=== PATIENT | female | born 1975 | race Caucasian/White ===

== ENCOUNTER 2016-11-10 18:27 | Day surgery (SDC) | payer OTHER ==
[~2016-11-10] VITALS: Ht 160 cm; Wt 55.0 kg
[~2016-11-10 18:27] MED LIST: PRED20 PO; ZANT150T2 PO
[2016-11-10 18:29] VITALS: BP 122/84; PULSE 87; RESP 16; TEMP 98; O2SAT 98
[2016-11-10 19:06] VITALS: BP 113/82; PULSE 84; RESP 15; O2SAT 98
--- NOTE | 2016-11-10 19:08 | PD ---
HPI Chief Complaint: Foreign Body Time Seen by Provider: 18:52 Travel History International Travel<30 days: No Contact w/Intl Traveler<30days: No Traveled to known affect area: No History of Present Illness HPI The patient is a 41-year-old female who presents to the emergency department for possible food bolus impaction. The patient states she awakened at 2 AM to make an meal last night, ate, and then felt like there was a food bolus impaction in the inferior aspect of the neck. The patient has pain with swallowing has difficulty swallowing liquids. She is unable to tolerate any solid intake today. The patient does have a history of food bolus impaction in the past that had to be removed, failed glucagon therapy in the emergency department per her report. She denies having had any dilatation of her esophagus, but does note occasional choking when eating. The patient does have a history of hyperthyroidism. The patient's symptoms are moderate, exacerbated after eating at 2 AM, and there are no current alleviating factors. PFSH Past Medical History Arthritis: No Anxiety: Yes Depression: No Cancer: No Cardiovascular Problems: No Diabetes: No Diminished Hearing: No Endocrine: No Genitourinary: No Hepatitis: No Hiatal Hernia: No Immune Disorder: No Implanted Vascular Access Dvce: No Kidney Stones: Yes Musculoskeletal: No Neurologic: No Psychiatric: No Reproductive: No Respiratory: No Immunizations Current: Yes Thyroid Disease: No Tetanus Vaccination: < 5 Years Influenza Vaccination: No ?: Not LMP: 10/2016 : 10 Para: 8 Miscarriage: 2 : 0 Dilation and Curettage (D&C): Yes Tubal Ligation: Yes Past Surgical History Abdominal Surgery: Yes (CHOLECYSTECTOMY) AICD: No Cardiac Surgery: No Section: Yes Cholecystectomy: Yes Ear Surgery: No Endocrine Surgery: No Eye Surgery: No Genitourinary Surgery: No Gynecologic Surgery: Yes () Joint Replacement: No Neurologic Surgery: No Oral Surgery: No Pacemaker: No Thoracic Surgery: No Other Surgery: Yes Social History Alcohol Use: No Tobacco Use: Yes Substance Use: No Allergies-Medications (Allergen,Severity, Reaction): Coded Allergies: Tylenol #3 (Verified Allergy, Intermediate, itching, 11/10/16) Reported Meds & Prescriptions Reported Meds & Active Scripts Active No Active Prescriptions or Reported Medications Review of Systems Except as stated in HPI: all other systems reviewed are Neg General / Constitutional: No: Fever Cardiovascular: Positive: Chest Pain or Discomfort (chest pain in the upper aspect of the chest associated with swallowing) Gastrointestinal: Positive: Dysphagia, No: Nausea, Vomiting, Abdominal Pain Musculoskeletal: No: Weakness Neurologic: No: Dizziness Physical Exam Narrative GENERAL: Awake, alert, 41-year-old female who appears her stated age and is in no acute respiratory distress. SKIN: Warm and dry. HEAD: Atraumatic. Normocephalic. EYES: No injection or drainage. ENT: No nasal bleeding or discharge. Mucous membranes pink and moist. Increased saliva noted in the posterior oropharynx. Breath smells of tobacco. NECK: Trachea midline. No JVD. CARDIOVASCULAR: Regular rate and rhythm. No murmur appreciated. RESPIRATORY: No accessory muscle use. Clear to auscultation. Breath sounds equal bilaterally. GASTROINTESTINAL: Abdomen soft, non-tender, nondistended. No rebound tenderness. MUSCULOSKELETAL: No obvious deformities. No clubbing. No cyanosis. No edema. NEUROLOGICAL: Awake and alert. No obvious cranial nerve deficits. Motor grossly within normal limits. Normal speech. PSYCHIATRIC: Appropriate mood and affect; insight and judgment normal. Data Data Last Documented VS Vital Signs Date Time Temp Pulse Resp B/P Pulse Ox O2 Delivery O2 Flow Rate FiO2 11/10/16 19:06 84 15 11/10/16 19:06 113/82 98 11/10/16 18:29 98.0 Orders Complete Blood Count With Diff (11/10/16 19:04) Basic Metabolic Panel (Bmp) (11/10/16 19:04) Act Partial Throm Time (Ptt) (11/10/16 19:04) Prothrombin Time / Inr (Pt) (11/10/16 19:04) Electrocardiogram (11/10/16 ) Glucagon Inj (Glucagon Inj) (11/10/16 19:15) Sodium Chlor 0.9% 1000 Ml Inj (Ns 1000 M (11/10/16 19:15) Admit Order (Ed Use Only) (11/10/16 20:00) Labs Laboratory Tests Test 11/10/16 19:20 White Blood Count 13.1 TH/MM3 Red Blood Count 4.23 MIL/MM3 Hemoglobin 14.0 GM/DL Hematocrit 40.2 % Mean Corpuscular Volume 95.1 FL Mean Corpuscular Hemoglobin 33.0 PG Mean Corpuscular Hemoglobin 34.7 % Concent Red Cell Distribution Width 13.0 % Platelet Count 268 TH/MM3 Mean Platelet Volume 9.1 FL Neutrophils (%) (Auto) 71.5 % Lymphocytes (%) (Auto) 20.5 % Monocytes (%) (Auto) 4.7 % Eosinophils (%) (Auto) 2.7 % Basophils (%) (Auto) 0.6 % Neutrophils # (Auto) 9.4 TH/MM3 Lymphocytes # (Auto) 2.7 TH/MM3 Monocytes # (Auto) 0.6 TH/MM3 Eosinophils # (Auto) 0.4 TH/MM3 Basophils # (Auto) 0.1 TH/MM3 CBC Comment DIFF FINAL Differential Comment Prothrombin Time 10.7 SEC Prothromb Time International 1.0 RATIO Ratio Activated Partial 26.3 SEC Thromboplast Time Sodium Level 139 MEQ/L Potassium Level 3.6 MEQ/L Chloride Level 105 MEQ/L Carbon Dioxide Level 27.2 MEQ/L Anion Gap 7 MEQ/L Blood Urea Nitrogen 8 MG/DL Creatinine 0.60 MG/DL Estimat Glomerular Filtration 111 ML/MIN Rate Random Glucose 71 MG/DL Calcium Level 8.8 MG/DL [facility] Medical Decision Making Medical Screen Exam Complete: Yes Emergency Medical Condition: Yes Medical Record Reviewed: Yes Interpretation(s) EKG reveals normal sinus rhythm with a rate 81. No ischemic changes or ectopy noted. Laboratory Tests Test 11/10/16 19:20 White Blood Count 13.1 TH/MM3 Red Blood Count 4.23 MIL/MM3 Hemoglobin 14.0 GM/DL Hematocrit 40.2 % Mean Corpuscular Volume 95.1 FL Mean Corpuscular Hemoglobin 33.0 PG Mean Corpuscular Hemoglobin 34.7 % Concent Red Cell Distribution Width 13.0 % Platelet Count 268 TH/MM3 Mean Platelet Volume 9.1 FL Neutrophils (%) (Auto) 71.5 % Lymphocytes (%) (Auto) 20.5 % Monocytes (%) (Auto) 4.7 % Eosinophils (%) (Auto) 2.7 % Basophils (%) (Auto) 0.6 % Neutrophils # (Auto) 9.4 TH/MM3 Lymphocytes # (Auto) 2.7 TH/MM3 Monocytes # (Auto) 0.6 TH/MM3 Eosinophils # (Auto) 0.4 TH/MM3 Basophils # (Auto) 0.1 TH/MM3 CBC Comment DIFF FINAL Differential Comment Prothrombin Time 10.7 SEC Prothromb Time International 1.0 RATIO Ratio Activated Partial 26.3 SEC Thromboplast Time Sodium Level 139 MEQ/L Potassium Level 3.6 MEQ/L Chloride Level 105 MEQ/L Carbon Dioxide Level 27.2 MEQ/L Anion Gap 7 MEQ/L Blood Urea Nitrogen 8 MG/DL Creatinine 0.60 MG/DL Estimat Glomerular Filtration 111 ML/MIN Rate Random Glucose 71 MG/DL Calcium Level 8.8 MG/DL Differential Diagnosis Differential diagnoses includes globus sensation, esophageal food also impaction , esophageal stenosis, esophageal stricture, esophageal ring, esophageal motility disorder, aspiration. Narrative Course IV was established, labs were drawn and sent, and the patient was placed on cardiac telemetry monitoring and continuous pulse oximetry monitoring. EKG was ordered and interpreted. CBC, BMP, coags were sent to lab. The patient was administered glucagon 1 mg intravenously and 1 L of normal saline. The patient was then given an oral challenge. EKG was unremarkable, no evidence of STEMI. The patient was given a by mouth challenge, had to spit up some fluid, also stated she felt like she was "aspirated", and then stated she was having an anxiety attack. I had a discussion with the patient regarding globus versus food bolus impaction. The patient may have a partial food bolus impaction, therefore, discussed the patient with the on-call cattle sprayer, Dr. Novak who evaluated the patient in the emergency department at 7:52 PM. The patient will be taken to the GI lab for endoscopy to evaluate for globus versus esophageal food bolus impaction. Physician Communication Physician Communication I discussed the patient with the on-call cattle sprayer, Dr. Jacobson, at 7: 52 PM who evaluated the patient in the emergency department. Diagnosis Primary Impression: Esophageal obstruction due to food impaction Admitting Information Admitting Physician Requests: Observation Scripts No Active Prescriptions or Reported Meds Condition: Stable Mitchell Padron MD Nov 10, 2016 19:08
[2016-11-10] MEDS ORDERED: SODIUM CHLOR 0.9% 1000 ML INJ 1,000 ML IV ONE (19:15)
[2016-11-10] MEDS ORDERED: GLUCAGON 1 MG/ML VIAL IV PUSH ONE (19:15)
[2016-11-10 19:42] LABS: AUTOMATED NEUTROPHIL # 9.4 TH/MM3 (1.8-7.7); BASOPHIL # 0.1 TH/MM3 (0-0.2); BASOPHIL % 0.6 % (0.0-2.0); EOSINOPHIL # 0.4 TH/MM3 (0-0.4); EOSINOPHIL % 2.7 % (0.0-4.0); HEMATOCRIT 40.2 % (35.0-46.0); HEMO FLAGS DIFF FINAL; LYMPH % 20.5 % (9.0-44.0); LYMPHOCYTE # 2.7 TH/MM3 (1.0-4.8); MEAN CELL VOLUME 95.1 FL (80.0-100.0); MEAN CORPUSCULAR HGB CONC 34.7 % (32.0-36.0); MONO % 4.7 % (0.0-8.0); NEUT % 71.5 % (16.0-70.0); PLATELET COUNT 268 TH/MM3 (150-450); RED BLOOD COUNT 4.23 MIL/MM3 (4.00-5.30); WHITE BLOOD COUNT 13.1 TH/MM3 (4.0-11.0)
[2016-11-10 19:52] LABS: APTT (PATIENT) 26.3 SEC (24.3-30.1); PROTHROMBIN TIME - PATIENT 10.7 SEC (9.8-11.6)
[2016-11-10 19:57] LABS: BICARBONATE 27.2 MEQ/L (21.0-32.0); POTASSIUM 3.6 MEQ/L (3.5-5.1)
[2016-11-10 21:50] VITALS: TEMP 98.1
[2016-11-10 22:10] VITALS: BP 112/84; PULSE 84; RESP 18; O2SAT 99
[2016-11-10] MEDS ORDERED: DO NOT ADM ANY ANTICOAGULANT DRUGS XX PRN (22:15)
[2016-11-10] MEDS ORDERED: PROPOFOL 200 MG/20 ML AMP IV ONE (22:23)
--- NOTE | 2016-11-10 22:30 | MB ---
cc: KALI DEVLIN DATE OF CONSULTATION 11/10/16 DATE OF 1975 REASON FOR REFERRAL Dysphagia. HISTORY OF PRESENT ILLNESS Thank you for the consultation. A 41-year-old female who feels that there is a food bolus impaction since 2:00 a.m. this morning. The patient feels that it is pressuring her throat. She has some difficulty drinking and spitting up when she tried to drink water. The patient was in the ER and very anxious. She was given glucagon without any relief. Apparently, she had similar episode two years ago where she had food bolus impaction with meat and it was removed. PAST MEDICAL HISTORY 1. Anxiety 2. Kidney stone 3. section 4. Cholecystectomy, ALLERGIES Tylenol III SOCIAL HISTORY Negative for alcohol or drugs. Positive for tobacco. REVIEW OF SYSTEMS All 12-point negative except HPI. FAMILY HISTORY Noncontributory. PHYSICAL EXAMINATION GENERAL: Alert, oriented, anxious in no acute distress. VITAL SIGNS: Stable. HEENT: Pupils round, reactive to light. NECK: Supple. CHEST: Clear. CARDIAC: Regular rate and rhythm. ABDOMEN: Soft, nondistended. Positive bowel sounds. EXTREMITIES: No edema, clubbing or cyanosis. NEUROLOGIC: Neurologically intact. PSYCHIATRIC: Psychologically appropriate with significant anxiety. LABORATORY DATA Normal hemoglobin 14.0, white count 13.1, platelet 268. Chemistry normal. ASSESSMENT/PLAN A 41-year-old lady with possible foreign body with dysphagia. The patient will need upper endoscopy with possible foreign body removal on an urgent basis. We will do it tonight. I discussed with the patient the procedure and complication. She agreed to have it done. This will be done today. MD CRISTIAN Reyes/ /9:32 PM /10:09 PM
--- NOTE | 2016-11-10 23:06 | MR ---
cc: KALI DEVLIN M.D. DATE: 11/10/16 1975 PROCEDURE Upper gastrointestinal endoscopy with foreign-body removal, dilation of esophageal stricture and biopsy of the esophagus. INDICATION A 41-year-old lady who has dysphagia, foreign body entrapment. PROCEDURE After informing the patient about procedure and complication, consent was signed. The patient was intubated to protect her airway by anesthesia. After sedation, the scope was placed in the mouth. There was foreign body in the proximal esophagus, pushed into the stomach. The scope was advanced to the duodenum then the scope drawn back with the stomach with retroflexion, then the scope drawn back to the proximal esophagus. Biopsy was done from what it looked like possible Ghazal esophagitis. After that, the guidewire was passed through the scope and dilator size 18 mm was passed without immediate complication. FINDINGS 1. Foreign body removed as above. 2. Possible Ghazal esophagitis biopsy 3. Dilation of esophageal stricture. 4. Normal otherwise. RECOMMENDATIONS 1. No NSAIDs. 2. Chew food well. 3. Follow-up biopsy. If it is positive for Ghazal, the patient will need treatment. The patient needs to be on soft diet. MD CRISTIAN Reyes/ /9:43 PM /10:58 PM
--- NOTE | 2016-11-11 17:28 | EKG ---
Date Performed: 11/10/2016 Time Performed: 19:24:51 PTAGE: 41 years EKG: Sinus rhythm NORMAL ECG PREVIOUS TRACING : 11/13/2015 19.58 Since previous tracing, no significant change noted DOCTOR: Sonia Olivarez Interpretating Date/Time 11/11/2016 17:22:56
== END 2016-11-10 22:20 | disposition home or self-care (01) ==
LOC: NEPC 18:27 → HSDC 20:18
PROVIDERS: ATTEND Hospitalist
DX: K22.2 Esophageal obstruction (principal); R13.10 Dysphagia, unspecified; T18.128A Food in esophagus causing other injury, initial encounter; K20.9 Esophagitis, unspecified; E05.90 Thyrotoxicosis, unspecified without thyrotoxic crisis or storm; Z87.442 Personal history of urinary calculi
CPT/HCPCS: 00740; 43239; 43247; 43248; 80048; 85025; 85610; 85730; 88305; 88312; 93005; 96374; 99284; C1769; J1610; J3010; J7030

== ENCOUNTER 2016-11-15 12:04 | Emergency (ER) | payer OTHER ==
[~2016-11-15] VITALS: Ht 160 cm; Wt 55.0 kg
[2016-11-15 12:06] VITALS: BP 133/88; PULSE 88; RESP 16; TEMP 98.2; O2SAT 98
[2016-11-15] MEDS ORDERED: ONDANSETRON ODT 4 MG TAB PO ONE (12:45)
[2016-11-15] MEDS ORDERED: FLUCONAZOLE 200 MG TAB PO ONE (13:00)
[2016-11-15] MEDS ORDERED: FLUC10SU PO (13:01)
--- NOTE | 2016-11-15 13:01 | PD ---
HPI Chief Complaint: GI Complaint Time Seen by Provider: 12:17 Travel History International Travel<30 days: No Contact w/Intl Traveler<30days: No Traveled to known affect area: No History of Present Illness HPI 41-year-old female came to the emergency room with history of nausea, dysphagia and some chest pain for past 2-3 days. Patient says that about 2-3 days ago she was in the emergency room for a food bolus impaction in her esophagus. She was taken to the GI suite and with endoscopy had the food particle taken out. There was a biopsy sent of her esophagus and she was supposed to follow up with the GI specialist in a week. However she started getting these other symptoms and that's why she is here to be checked out. She seems anxious and uncomfortable. Vital signs were completely stable. She points to her mid sternal and right parasternal area pain. Patient says that this is the second time in past one year she has had food impaction in her throat. She does have a primary care physician who has told her that her thyroid has been "acting out ". [facility] Past Medical History Narrative Medical List of her past medical, surgical, social and family history has been reviewed from the nursing note. Arthritis: No Anxiety: Yes Depression: No Cancer: No Cardiovascular Problems: No Diabetes: No Diminished Hearing: No Endocrine: No Genitourinary: No Hepatitis: No Hiatal Hernia: No Immune Disorder: No Implanted Vascular Access Dvce: No Kidney Stones: Yes Musculoskeletal: No Neurologic: No Psychiatric: No Reproductive: No Respiratory: No Immunizations Current: Yes Thyroid Disease: No ?: Not LMP: 10/2016 : 10 Para: 8 Miscarriage: 2 : 0 Dilation and Curettage (D&C): Yes Tubal Ligation: Yes Past Surgical History Abdominal Surgery: Yes (CHOLECYSTECTOMY) AICD: No Cardiac Surgery: No Section: Yes Cholecystectomy: Yes Ear Surgery: No Endocrine Surgery: No Eye Surgery: No Genitourinary Surgery: No Gynecologic Surgery: Yes () Joint Replacement: No Neurologic Surgery: No Oral Surgery: No Pacemaker: No Thoracic Surgery: No Other Surgery: Yes Social History Alcohol Use: No Tobacco Use: Yes Substance Use: No Allergies-Medications (Allergen,Severity, Reaction): Coded Allergies: Tylenol #3 (Verified Allergy, Intermediate, itching, 11/15/16) Comments List of her allergies reviewed from the nursing note. Reported Meds & Prescriptions Reported Meds & Active Scripts Active Omeprazole 40 Mg Cap 40 Mg PO DAILY Zofran Odt (Ondansetron Odt) 4 Mg Tab 4 Mg SL Q6HR PRN Fluconazole Liq (Fluconazole) 10 Mg/Ml Susp 100 Mg PO DAILY 10 Days Narrative Medication List of home medications reviewed from the nursing note. Review of Systems Except as stated in HPI: all other systems reviewed are Neg Physical Exam Narrative GENERAL: Awake, alert, anxious, mild distress SKIN: Warm and dry. HEAD: Atraumatic. Normocephalic. EYES: Pupils equal and round. No scleral icterus. No injection or drainage. ENT: No nasal bleeding or discharge. Mucous membranes pink and moist. Oral thrush, bilateral tonsillar adenopathy NECK: Trachea midline. No JVD. CARDIOVASCULAR: Regular rate and rhythm. No murmur appreciated. RESPIRATORY: No accessory muscle use. Clear to auscultation. Breath sounds equal bilaterally. GASTROINTESTINAL: Abdomen soft, non-tender, nondistended. Hepatic and splenic margins not palpable. MUSCULOSKELETAL: No obvious deformities. No clubbing. No cyanosis. No edema. NEUROLOGICAL: Awake and alert. No obvious cranial nerve deficits. Motor grossly within normal limits. Normal speech. PSYCHIATRIC: Appropriate mood and affect; insight and judgment normal. Data Data Last Documented VS Orders Ondansetron Odt (Zofran Odt) (11/15/16 12:45) Fluconazole (Diflucan) (11/15/16 13:00) [facility] Medical Decision Making Medical Screen Exam Complete: Yes Emergency Medical Condition: Yes Medical Record Reviewed: Yes Differential Diagnosis Strep throat, Ghazal esophagitis, oral thrush, anxiety Narrative Course 1 PM I looked at the patient's upper endoscopy report that was done by Dr. Marquez. His report said that he was suspicious for Ghazal esophagitis and had sent of biopsy for pathology. If it was positive for Ghazal she would require treatment. Patient was supposed to follow up with him in one week. The pathology report did show lot of fungal elements which looks like yeast. Given her findings of oral/and endoscopy finding I went ahead and started her on fluconazole 200 mg. I discussed the case with Dr. Marquez and he agreed with the treatment. He said he would be happy to follow up with her in his office next week. However from his standpoint he did not need anything else to be done. I have asked the patient to follow up with her primary care and have a workup done for immunosuppressive disorders including HIV. She had her last HIV screening done in [facility] in 2012. She admitted that she did not have any further HIV test done since then. She does seem pretty anxious with that being a possibility. I've tried to reassure her and asked her to follow up with her primary care. I have answered all her questions to the best of my ability. She will be discharged home. Procedures EKG Prior to Arrival: No Physician Communication Physician Communication Dr. Marquez Diagnosis Primary Impression: Ghazal esophagitis Additional Impressions: Oral thrush Dysphagia Qualified Code: R13.14 - Esophageal dysphagia tonsillar adenopathy Acute gastritis Qualified Code: K29.00 - Other acute gastritis without hemorrhage Referrals: Shelbi Jacobson MD 3 days Additional Instructions: Please follow-up with your primary care and needs to work you up for immunosuppressive disorders. Take the medication as per the prescription direction. Return to the ER if the condition worsens or any other new concerns. Please follow-up with the GI specialist as per the appointment. Med/Other Pt SpecificInfo: Prescription(s) given Scripts Omeprazole 40 Mg Cap40 Mg PO DAILY #30 CAP Ref 0 Prov:Cinthia Danielle MD 11/15/16 Ondansetron Odt (Zofran Odt)4 Mg Tab4 Mg SL Q6HR PRN (Nausea/Vomiting) #30 TAB Ref 0 Prov:Cinthia Danielle MD 11/15/16 Fluconazole Liq 10 Mg/Ml [id number] Mg PO DAILY 10 Days Ref 0 Prov:Cinthia Danielle MD 11/15/16 Disposition: 01 DISCHARGE HOME Condition: Stable Cinthia Danielle MD Nov 15, 2016 13:01 Condition: Stable Cinthia Danielle MD Nov 15, 2016 13:01
[2016-11-15] MEDS ORDERED: OMEP40CA2 PO (13:02)
[2016-11-15] MEDS ORDERED: ZOFR4TAB3 SL (13:02)
== END 2016-11-15 14:14 | disposition home or self-care (01) ==
LOC: NEPA 12:04
DX: B37.81 Candidal esophagitis (principal); B37.0 Candidal stomatitis; R13.14 Dysphagia, pharyngoesophageal phase; K29.00 Acute gastritis without bleeding; R11.0 Nausea; Z72.0 Tobacco use
CPT/HCPCS: 99283

== ENCOUNTER 2017-03-20 15:24 | Emergency (ER) | payer OTHER ==
[~2017-03-20] VITALS: Ht 160 cm; Wt 55.0 kg
[~2017-03-20 15:24] MED LIST changes: +FLUC10SU PO; +OMEP40CA2 PO; -PRED20 PO; -ZANT150T2 PO; +ZOFR4TAB3 SL
[2017-03-20 15:26] VITALS: BP 142/80; PULSE 102; RESP 20; TEMP 98.1; O2SAT 98
--- NOTE | 2017-03-20 15:51 | PD ---
HPI Chief Complaint: Pain: Acute or Chronic Time Seen by Provider: 15:43 Travel History International Travel<30 days: No Contact w/Intl Traveler<30days: No Traveled to known affect area: No History of Present Illness HPI This is a 41-year-old female who presents to the emergency department with abdominal discomfort in the center of her chest that started earlier today, wrapping around both sides into the back, severe, constant, not alleviated by laxatives associated with some nausea but no vomiting. She denies any fevers or chills and denies any diarrhea. She says this feels similar to when she's had kidney stones in the past. She is on Lortab for chronic back pain and she says she took it most recently last night and it didn't help. PFSH Past Medical History Arthritis: No Anxiety: Yes Depression: No Cancer: No Cardiovascular Problems: No Diabetes: No Diminished Hearing: No Endocrine: No Genitourinary: No Hepatitis: No Hiatal Hernia: No Immune Disorder: No Implanted Vascular Access Dvce: No Kidney Stones: Yes Musculoskeletal: No Neurologic: No Psychiatric: No Reproductive: No Respiratory: No Immunizations Current: Yes Thyroid Disease: No ?: Not : 10 Para: 8 Miscarriage: 2 : 0 Dilation and Curettage (D&C): Yes Tubal Ligation: Yes Past Surgical History Abdominal Surgery: Yes (CHOLECYSTECTOMY) AICD: No Cardiac Surgery: No Section: Yes Cholecystectomy: Yes Ear Surgery: No Endocrine Surgery: No Eye Surgery: No Genitourinary Surgery: No Gynecologic Surgery: Yes () Joint Replacement: No Neurologic Surgery: No Oral Surgery: No Pacemaker: No Thoracic Surgery: No Other Surgery: Yes Social History Alcohol Use: No Tobacco Use: Yes Substance Use: No Allergies-Medications (Allergen,Severity, Reaction): Coded Allergies: Tylenol #3 (Verified Allergy, Intermediate, itching, 03/20/17) Reported Meds & Prescriptions Reported Meds & Active Scripts Active Omeprazole 40 Mg Cap 40 Mg PO DAILY Zofran Odt (Ondansetron Odt) 4 Mg Tab 4 Mg SL Q6HR PRN Fluconazole Liq (Fluconazole) 10 Mg/Ml Susp 100 Mg PO DAILY 10 Days Review of Systems Except as stated in HPI: all other systems reviewed are Neg Physical Exam Narrative GENERAL: Rocking back and forth in bed, immediately asking for pain medicine SKIN: Focused skin assessment warm and dry. HEAD: Atraumatic. Normocephalic. EYES: Pupils equal and round. No injection or drainage. ENT: Moist mucous membranes NECK: Trachea midline. CARDIOVASCULAR: Regular rate and rhythm. No murmur appreciated. RESPIRATORY: Clear to auscultation. Breath sounds equal bilaterally. GASTROINTESTINAL: Abdomen soft, tender to palpation in the epigastrium with no rebound or guarding. MUSCULOSKELETAL: No obvious deformities. NEUROLOGICAL: Awake and alert. No obvious cranial nerve deficits. Moving all extremities. PSYCHIATRIC: Appropriate mood and affect; insight and judgment normal. Data Data Last Documented VS Vital Signs Date Time Temp Pulse Resp B/P Pulse Ox O2 Delivery O2 Flow Rate FiO2 03/20/17 15:26 98.1 102 20 142/80 98 Orders Complete Blood Count With Diff (03/20/17 15:33) Comprehensive Metabolic Panel (03/20/17 15:33) Urinalysis - C+S If Indicated (03/20/17 15:33) Lipase (03/20/17 15:33) Ct Abd/Pel W/O Iv Contrast (03/20/17 ) Chest, Single Ap (03/20/17 ) Sodium Chlor 0.9% 1000 Ml Inj (Ns 1000 M (03/20/17 16:00) Ketorolac Inj (Toradol Inj) (03/20/17 16:00) Labs Laboratory Tests Test 03/20/17 16:34 White Blood Count 9.2 TH/MM3 Red Blood Count 4.21 MIL/MM3 Hemoglobin 13.8 GM/DL Hematocrit 40.8 % Mean Corpuscular Volume 96.8 FL Mean Corpuscular Hemoglobin 32.8 PG Mean Corpuscular Hemoglobin 33.9 % Concent Red Cell Distribution Width 12.9 % Platelet Count 281 TH/MM3 Mean Platelet Volume 9.2 FL Neutrophils (%) (Auto) 65.0 % Lymphocytes (%) (Auto) 27.1 % Monocytes (%) (Auto) 3.5 % Eosinophils (%) (Auto) 3.3 % Basophils (%) (Auto) 1.1 % Neutrophils # (Auto) 6.0 TH/MM3 Lymphocytes # (Auto) 2.5 TH/MM3 Monocytes # (Auto) 0.3 TH/MM3 Eosinophils # (Auto) 0.3 TH/MM3 Basophils # (Auto) 0.1 TH/MM3 CBC Comment DIFF FINAL Differential Comment MDM Medical Decision Making Medical Screen Exam Complete: Yes Emergency Medical Condition: Yes Interpretation(s) Afebrile, tachycardic, mild hypertension No leukocytosis Last 24 hours Impressions Chest X-Ray 03/20/17 0000 Signed Impressions: Service Date/Time: Monday, March 20, 2017 15:46 - CONCLUSION: No acute disease. Jose C Patterson MD FACR Abdomen/Pelvis CT 03/20/17 0000 Signed Impressions: Service Date/Time: Monday, March 20, 2017 16:24 - CONCLUSION: 1. Two stable 2 mm calcified renal calculi in the superior left renal pole. A third 2 mm calcified calculus noted in September 2015 is not visualized in the current exam. 2. New punctate nonobstructing calyceal calculus in the superior right renal pole. 3. No evidence for obstructive uropathy. 4. Otherwise, no definitive findings to explain patient's abdominal pain. Erasmo Lucas MD Differential Diagnosis Nephrolithiasis, pyelonephritis, gastritis, peptic ulcer disease, gastroenteritis Narrative Course This is a 41-year-old female who presents to the emergency department with abdominal discomfort that started today. She says she has a history of kidney stones and this feels similar. Labs are obtained which were all reassuring. CT abdomen and pelvis demonstrates some renal calculi in the kidneys but nothing that would explain her pain with nothing in the ureter. Patient was given Toradol and IV fluids. I am a little bit concerned about drug seeking. The patient is consistently asking for IV pain medication and is rocking back and forth in bed. I can't identify a surgical or emergent etiology for her pain. I think she can be discharged and follow up with her primary care physician. Diagnosis Primary Impression: Abdominal pain Qualified Code: R10.13 - Epigastric pain Patient Instructions: General Instructions Additional Instructions: If you develop severe or worsening abdominal pain, fever>100.4, persistent vomiting or inability to eat or drink return to the emergency department immediately. Follow up with your primary care physician in 1-2 days for a check-up. Med/Other Pt SpecificInfo: Prescription(s) given Scripts Dicyclomine (Bentyl)10 Mg Cap10 Mg PO QID PRN (CRAMPS) #20 CAP Ref 0 Prov:Courtney Johnson MD 03/20/17 Disposition: 01 DISCHARGE HOME Condition: Stable Courtney Johnson MD Mar 20, 2017 15:51
[2017-03-20] MEDS ORDERED: KETOROLAC TROMETHAMINE 30 MG/ML (IVP) VIAL IV PUSH ONE (16:00)
[2017-03-20] MEDS ORDERED: SODIUM CHLOR 0.9% 1000 ML INJ 1,000 ML IV ONE (16:00)
--- NOTE | 2017-03-20 16:18 | RADRPT ---
EXAM DATE/TIME: 03/20/2017 15:46 [facility] COMPARISON: No previous studies available for comparison. INDICATIONS : Low chest pain MEDICAL HISTORY : None. SURGICAL HISTORY : Cholecystectomy. Tubal ligation. ENCOUNTER: Initial ACUITY: 1 day PAIN SCORE: 9/10 LOCATION: Bilateral chest FINDINGS: A single view of the chest demonstrates the lungs to be symmetrically aerated without evidence of mas s, infiltrate or effusion. The cardiomediastinal contours are unremarkable. Osseous structures are intact. CONCLUSION: No acute disease. Jose C Patterson MD FACR on March 20, 2017 at 16:15 Board Certified Radiologist. This report was verified electronically.
--- NOTE | 2017-03-20 16:52 | RADRPT ---
EXAM DATE/TIME: 03/20/2017 16:24 [facility] COMPARISON: CT ABDOMEN & PELVIS W/O CONTRAST, October 03, 2015, 12:50. INDICATIONS : Left side pain for 1 day. Rib pain. Positive history of renal stones. ORAL CONTRAST: No oral contrast ingested. RADIATION DOSE: 3.22 CTDIvol (mGy) MEDICAL HISTORY : Renal calculi. SURGICAL HISTORY : Cholecystectomy. section.Tubal ligation. ENCOUNTER: Initial ACUITY: 1 day PAIN SCALE: 10/10 LOCATION: Left flank TECHNIQUE: Volumetric scanning of the abdomen and pelvis was performed. Using automated exposure control and ad justment of the mA and/or kV according to patient size, radiation dose was kept as low as reasonably achievable to obtain optimal diagnostic quality images. DICOM format image data is available electro nically for review and comparison. FINDINGS: LOWER LUNGS: The visualized lower lungs are clear. LIVER: Homogeneous density without lesion. There is no dilation of the biliary tree. Gallbladder is surgica lly absent. SPLEEN: Redemonstration of a low density cystic lesion in the posterior spleen which is stable in size measur ing 2.2 cm. Spleen is otherwise unremarkable. PANCREAS: Within normal limits. KIDNEYS: Two stable small 2 mm calcified renal calculi in the superior left kidney. A third calculus noted in the mid left kidney is not definitively demonstrated on current exam. There is a punctate calyceal ca lcification in the superior pole of the right kidney. No hydronephrosis or hydroureter a calcified ur eteral calculi. ADRENAL GLANDS: Within normal limits. VASCULAR: There is no aortic aneurysm. BOWEL/MESENTERY: Appendix is not directly visualized. However, there is no significant pericecal inflammatory change. Bowel appear grossly unremarkable without evidence for obstruction.ABDOMINAL WALL: Within normal limits. RETROPERITONEUM: There is no lymphadenopathy. BLADDER: No wall thickening or mass. REPRODUCTIVE: Within normal limits. INGUINAL: There is no lymphadenopathy or hernia. MUSCULOSKELETAL: Within normal limits for patient age. CONCLUSION: 1. Two stable 2 mm calcified renal calculi in the superior left renal pole. A third 2 mm calcified ca lculus noted in September 2015 is not visualized in the current exam. 2. New punctate nonobstructing calyceal calculus in the superior right renal pole. 3. No evidence for obstructive uropathy. 4. Otherwise, no definitive findings to explain patient's abdominal pain. Erasmo Lucas MD on March 20, 2017 at 16:36 Board Certified Radiologist. This report was verified electronically.
[2017-03-20 16:59] LABS: BASOPHIL # 0.1 TH/MM3 (0-0.2); BASOPHIL % 1.1 % (0.0-2.0); EOSINOPHIL # 0.3 TH/MM3 (0-0.4); EOSINOPHIL % 3.3 % (0.0-4.0); HEMATOCRIT 40.8 % (35.0-46.0); HEMO FLAGS DIFF FINAL; LYMPH % 27.1 % (9.0-44.0); LYMPHOCYTE # 2.5 TH/MM3 (1.0-4.8); MEAN CELL VOLUME 96.8 FL (80.0-100.0); MEAN CORPUSCULAR HEMOGLOBIN 32.8 PG (27.0-34.0); MEAN CORPUSCULAR HGB CONC 33.9 % (32.0-36.0); MONO % 3.5 % (0.0-8.0); PLATELET COUNT 281 TH/MM3 (150-450); RED BLOOD COUNT 4.21 MIL/MM3 (4.00-5.30); RED CELL DISTRIBUTION WIDTH 12.9 % (11.6-17.2); WHITE BLOOD COUNT 9.2 TH/MM3 (4.0-11.0)
[2017-03-20 17:00] LABS: BLOOD, URINE TRACE (NEG); COMMENT (UR) CULT NOT INDICATED; CULTURE IF INDICATED CULT NOT INDICATED; GLUCOSE,URINE NEG (NEG); KETONE, URINE NEG (NEG); MUCUS URINE FEW /lpf (OCC); NITRITE,URINE NEG (NEG); SQUAMOUS EPITHELIAL CELL URINE 3 /hpf (0-5); URINE COLOR YELLOW (YELLW/STRAW)
[2017-03-20 17:10] LABS: ALT (GPT) 18 U/L (10-53); ANION GAP 6 MEQ/L (5-15); AST (GOT) 14 U/L (15-37); BICARBONATE 26.5 MEQ/L (21.0-32.0); BLOOD UREA NITROGEN 13 MG/DL (7-18); CHLORIDE 107 MEQ/L (98-107); GLOMERULAR FILTRATION RATE 93 ML/MIN (>89); POTASSIUM 4.1 MEQ/L (3.5-5.1); SODIUM (NA) 139 MEQ/L (136-145)
[2017-03-20] MEDS ORDERED: DICY10 PO (17:10)
[2017-03-20 17:12] LABS: ALKALINE PHOSPHATASE 87 U/L (45-117); TOTAL BILIRUBIN ADULT 0.5 MG/DL (0.2-1.0)
== END 2017-03-20 17:46 | disposition home or self-care (01) ==
LOC: NEPD 15:24
DX: R10.13 Epigastric pain (principal); R00.0 Tachycardia, unspecified
CPT/HCPCS: 71010; 74176; 80053; 81001; 83690; 85025; 96374; 99285; J1885; J7030

== ENCOUNTER 2017-06-15 16:24 | Emergency (ER) | payer OTHER ==
[~2017-06-15] VITALS: Ht 160 cm; Wt 57.0 kg
[~2017-06-15 16:24] MED LIST changes: +DICY10 PO
[2017-06-15] MEDS ORDERED: IOHEXOL 350 MG/ML 10 ML VIAL (for RAD DIAG) IVCONTRAST ONE (16:25)
[2017-06-15 16:29] VITALS: BP 114/78; PULSE 94; RESP 18; TEMP 98.8; O2SAT 100
[2017-06-15] MEDS ORDERED: CYCL1TAB29 PO (18:40)
[2017-06-15] MEDS ORDERED: GABA300C5 PO (18:40)
[2017-06-15] MEDS ORDERED: SODIUM CHLOR 0.9% 1000 ML INJ 1,000 ML IV SCH (18:43)
[2017-06-15] MEDS ORDERED: ONDANSETRON HCL 4 MG/2 ML VIAL IVP ONE (18:45)
[2017-06-15] MEDS ORDERED: MORPHINE SULFATE 4 MG/ML INJ IV PUSH ONE (18:45)
--- NOTE | 2017-06-15 19:13 | PD ---
HPI Chief Complaint: Abdominal Pain Time Seen by Provider: 18:39 Travel History International Travel<30 days: No Contact w/Intl Traveler<30days: No Traveled to known affect area: No History of Present Illness HPI 42-year-old female that presents to the ED for evaluation of right lower quadrant abdominal pain. Per patient she's had this since yesterday. Pain is sharp and 7 out of 10. Nausea and Vomiting. Diarrhea Noted. Per Patient She Also Has a Yeast Infection. She denies any other vaginal discharge. Per patient he feels similar to her previous yeast infections. No fevers chills or sweats. No recent surgeries. Per patient she had multiple C-sections. Per patient she had a C-sections and in 2014 she had tubal ligation. She had her gallbladder removed. No other medical issues. No urinary symptoms. Allergies to Tylenol 3. No blood with vomiting or with bowel movements or urine. PFSH Past Medical History Arthritis: No Anxiety: Yes Depression: No Cancer: No Cardiovascular Problems: No Diabetes: No Diminished Hearing: No Endocrine: No Genitourinary: No Hepatitis: No Hiatal Hernia: No Immune Disorder: No Implanted Vascular Access Dvce: No Kidney Stones: Yes Musculoskeletal: No Neurologic: No Psychiatric: No Reproductive: No Respiratory: No Immunizations Current: Yes Thyroid Disease: No ?: Unknown LMP: 05/25/17 : 10 Para: 8 Miscarriage: 2 : 0 Dilation and Curettage (D&C): Yes Tubal Ligation: Yes Past Surgical History Abdominal Surgery: Yes (CHOLECYSTECTOMY) AICD: No Cardiac Surgery: No Section: Yes Cholecystectomy: Yes Ear Surgery: No Endocrine Surgery: No Eye Surgery: No Genitourinary Surgery: No Gynecologic Surgery: Yes () Joint Replacement: No Pacemaker: No Thoracic Surgery: No Other Surgery: Yes Social History Alcohol Use: No Tobacco Use: Yes Substance Use: No Allergies-Medications (Allergen,Severity, Reaction): Coded Allergies: acetaminophen (Unverified Allergy, Intermediate, itching, 05/02/17) codeine (Unverified Allergy, Intermediate, itching, 05/02/17) Reported Meds & Prescriptions Reported Meds & Active Scripts Active Diflucan (Fluconazole) 150 Mg Tab 150 Mg PO ONCE Lortab (Hydrocodone-Acetaminophen) 5-325 Mg Tab 1 Tab PO Q6H PRN Zofran (Ondansetron HCl) 4 Mg Tab 4 Mg PO Q6HR PRN Flagyl (Metronidazole) 500 Mg Tab 500 Mg PO QID 10 Days Reported Flexeril (Cyclobenzaprine HCl) 10 Mg Tab 10 Mg PO TID Gabapentin 300 Mg Cap 300 Mg PO DAILY Review of Systems Except as stated in HPI: all other systems reviewed are Neg Physical Exam Narrative GENERAL: SKIN: Warm and dry. HEAD: Atraumatic. Normocephalic. EYES: Pupils equal and round. No scleral icterus. No injection or drainage. ENT: No nasal bleeding or discharge. Mucous membranes pink and moist. Tongue is midline. No uvula deviation. NECK: Trachea midline. No JVD. CARDIOVASCULAR: Regular rate and rhythm. No murmurs, S3, S4. RESPIRATORY: No accessory muscle use. Clear to auscultation. Breath sounds equal bilaterally. GASTROINTESTINAL: Abdomen soft, RLQ tenderness to palpation, nondistended. Hepatic and splenic margins not palpable. MUSCULOSKELETAL: Extremities without clubbing, cyanosis, or edema. No obvious deformities. Full range of motion of the upper and lower extremities bilaterally. 2+ pulses bilaterally. NEUROLOGICAL: Awake and alert. No obvious cranial nerve deficits. Motor grossly within normal limits. Five out of 5 muscle strength in the arms and legs. Normal speech. PSYCHIATRIC: Appropriate mood and affect; insight and judgment normal. Data Data Last Documented VS Vital Signs Date Time Temp Pulse Resp B/P (MAP) Pulse Ox O2 Delivery O2 Flow Rate FiO2 06/15/17 16:29 98.8 94 18 114/78 (90) 100 Room Air Orders Orders Complete Blood Count With Diff (06/15/17 18:43) Comprehensive Metabolic Panel (06/15/17 18:43) Lipase (06/15/17 18:43) Urinalysis - C+S If Indicated (06/15/17 18:43) Magnesium (Mg) (06/15/17 18:43) Iv Access Insert/Monitor (06/15/17 18:43) Ed Urine Pregnancytest Poc (06/15/17 18:43) Ct Abd/Pel W Iv Contrast(Rout) (06/15/17 ) Morphine Inj (Morphine Inj) (06/15/17 18:45) Ondansetron Inj (Zofran Inj) (06/15/17 18:45) Sodium Chlor 0.9% 1000 Ml Inj (Ns 1000 M (06/15/17 18:43) Iohexol 350 Inj (Omnipaque 350 Inj) (06/15/17 16:25) Labs Laboratory Tests Test 06/15/17 18:54 06/15/17 18:57 White Blood Count 8.4 TH/MM3 Red Blood Count 4.33 MIL/MM3 Hemoglobin 13.9 GM/DL Hematocrit 41.4 % Mean Corpuscular Volume 95.8 FL Mean Corpuscular Hemoglobin 32.1 PG Mean Corpuscular Hemoglobin Concent 33.5 % Red Cell Distribution Width 13.3 % Platelet Count 241 TH/MM3 Mean Platelet Volume 9.3 FL Neutrophils (%) (Auto) 74.2 % Lymphocytes (%) (Auto) 18.3 % Monocytes (%) (Auto) 4.6 % Eosinophils (%) (Auto) 2.2 % Basophils (%) (Auto) 0.7 % Neutrophils # (Auto) 6.2 TH/MM3 Lymphocytes # (Auto) 1.5 TH/MM3 Monocytes # (Auto) 0.4 TH/MM3 Eosinophils # (Auto) 0.2 TH/MM3 Basophils # (Auto) 0.1 TH/MM3 CBC Comment DIFF FINAL Differential Comment Blood Urea Nitrogen 8 MG/DL Creatinine 0.61 MG/DL Random Glucose 75 MG/DL Total Protein 7.9 GM/DL Albumin 4.1 GM/DL Calcium Level 8.9 MG/DL Magnesium Level 2.2 MG/DL Alkaline Phosphatase 79 U/L Aspartate Amino Transf (AST/SGOT) 19 U/L Alanine Aminotransferase (ALT/SGPT) 29 U/L Total Bilirubin 1.3 MG/DL Sodium Level 139 MEQ/L Potassium Level 3.9 MEQ/L Chloride Level 108 MEQ/L Carbon Dioxide Level 26.3 MEQ/L Anion Gap 5 MEQ/L Estimat Glomerular Filtration Rate 108 ML/MIN Lipase 105 U/L Urine Color YELLOW Urine Turbidity HAZY Urine pH 6.5 Urine Specific [place] 1.021 Urine Protein TRACE mg/dL Urine Glucose (UA) NEG mg/dL Urine Ketones TRACE mg/dL Urine Occult Blood NEG Urine Nitrite NEG Urine Bilirubin NEG Urine Urobilinogen 2.0 MG/DL Urine Leukocyte Esterase MOD Urine RBC 2 /hpf Urine WBC 4 /hpf Urine Squamous Epithelial Cells 6 /hpf Urine Mucus MANY /lpf Microscopic Urinalysis Comment CULT NOT INDICATED MDM Medical Decision Making Medical Screen Exam Complete: Yes Emergency Medical Condition: Yes Medical Record Reviewed: Yes Interpretation(s) CBC & BMP Diagram 06/15/17 18:54 Total Protein 7.9, Albumin 4.1, Calcium Level 8.9, Magnesium Level 2.2, Alkaline Phosphatase 79, Aspartate Amino Transf (AST/SGOT) 19, Alanine Aminotransferase (ALT/SGPT) 29, Total Bilirubin 1.3 H UA negative Last Impressions Abdomen/Pelvis CT 06/15/17 0000 Signed Impressions: Service Date/Time: May 20:16 - CONCLUSION: 1. Mild right-sided colitis possible in the proper clinical setting. No high-grade inflammatory changes are demonstrated. I don't clearly see the appendix. 2. Trace free fluid in the pelvic cul-de-sac. 3. Mild fatty infiltration of the liver. 4. Unchanged simple appearing cyst of the spleen. Gopi Yousif MD Differential Diagnosis UTI versus viral quadrant pain versus vaginitis versus acute on chronic pain versus gastritis versus gastroenteritis versus obstruction versus appendicitis Narrative Course 42-year-old female that presents to the ED for evaluation of right lower quadrant pain. Patient was properly examined and was found to have signs and symptoms of unclear etiology. Of concern for right lower quadrant pain possible appendicitis patient still has his appendix. Labs and imaging were ordered. Patient was given IV fluids and pain medication and antiemetics. Labs and imaging showed what appears to be acute diverticulitis. Otherwise unremarkable. No sign of appendicitis or any other disease. Patient was reassured. At this time patient will be treated for this with Flagyl to cover for bacterial infection, pain medication as well as Zofran. Patient was told that she was follow with PCP. She was given Diflucan at her request for possible yeast infection. See ED worsening symptoms. Given note for work. Diagnosis Primary Impression: Colitis Patient Instructions: General Instructions, Narcotic given in the ED Departure Forms: Tests/Procedures, Work Release Enter return to work date: Jun 18, 2017 Additional Instructions: Take medications as prescribed. Drink plenty of fluids. See ED worsening symptoms. Do not drink or drive with taking the pain medication. Med/Other Pt SpecificInfo: Prescription(s) given Scripts Fluconazole (Diflucan) 150 Mg Tab 150 MG PO ONCE for Infection, #1 TAB 1 Refill Prov: Hawa Simms MD 06/15/17 Hydrocodone-Acetaminophen (Lortab) 5-325 Mg Tab 1 TAB PO Q6H Y for PAIN, #10 TAB 0 Refills Prov: Hawa Simms MD 06/15/17 Ondansetron (Zofran) 4 Mg Tab 4 MG PO Q6HR Y for NAUSEA OR VOMITING, #15 TAB 0 Refills Prov: Hawa Simms MD 06/15/17 Metronidazole (Flagyl) 500 Mg Tab 500 MG PO QID for Infection for 10 Days, TAB 0 Refills Prov: Hawa Simms MD 06/15/17 Disposition: 01 DISCHARGE HOME Condition: Stable Aristides Bailey Jun 15, 2017 19:13
[2017-06-15 19:28] LABS: AUTOMATED NEUTROPHIL # 6.2 TH/MM3 (1.8-7.7); BASOPHIL # 0.1 TH/MM3 (0-0.2); BASOPHIL % 0.7 % (0.0-2.0); EOSINOPHIL # 0.2 TH/MM3 (0-0.4); EOSINOPHIL % 2.2 % (0.0-4.0); HEMATOCRIT 41.4 % (35.0-46.0); HEMO FLAGS DIFF FINAL; LYMPH % 18.3 % (9.0-44.0); LYMPHOCYTE # 1.5 TH/MM3 (1.0-4.8); MEAN CELL VOLUME 95.8 FL (80.0-100.0); MEAN CORPUSCULAR HEMOGLOBIN 32.1 PG (27.0-34.0); MEAN CORPUSCULAR HGB CONC 33.5 % (32.0-36.0); MONO % 4.6 % (0.0-8.0); NEUT % 74.2 % (16.0-70.0); PLATELET COUNT 241 TH/MM3 (150-450); RED BLOOD COUNT 4.33 MIL/MM3 (4.00-5.30); RED CELL DISTRIBUTION WIDTH 13.3 % (11.6-17.2); WHITE BLOOD COUNT 8.4 TH/MM3 (4.0-11.0)
[2017-06-15 19:28] LABS: BLOOD, URINE NEG (NEG); COMMENT (UR) CULT NOT INDICATED; CULTURE IF INDICATED CULT NOT INDICATED; GLUCOSE,URINE NEG (NEG); KETONE, URINE TRACE mg/dL (NEG); MUCUS URINE MANY /lpf (OCC); NITRITE,URINE NEG (NEG); PH, URINE 6.5 (5.0-8.5); SQUAMOUS EPITHELIAL CELL URINE 6 /hpf (0-5); URINE COLOR YELLOW (YELLW/STRAW)
[2017-06-15 19:46] LABS: ANION GAP 5 MEQ/L (5-15); AST (GOT) 19 U/L (15-37); BICARBONATE 26.3 MEQ/L (21.0-32.0); BLOOD UREA NITROGEN 8 MG/DL (7-18); CHLORIDE 108 MEQ/L (98-107); GLOMERULAR FILTRATION RATE 108 ML/MIN (>89); MAGNESIUM 2.2 MG/DL (1.5-2.5); POTASSIUM 3.9 MEQ/L (3.5-5.1); SODIUM (NA) 139 MEQ/L (136-145)
[2017-06-15 19:47] LABS: ALT (GPT) 29 U/L (10-53)
[2017-06-15 19:49] LABS: ALKALINE PHOSPHATASE 79 U/L (45-117); TOTAL BILIRUBIN ADULT 1.3 MG/DL (0.2-1.0)
--- NOTE | 2017-06-15 20:37 | RADRPT ---
EXAM DATE/TIME: 06/15/2017 20:16 [facility] COMPARISON: CT ABDOMEN & PELVIS W/O CONTRAST, March 20, 2017, 16:24. CT ABDOMEN & PELVIS W CONTRAST, April 29 015, 17:28. INDICATIONS : Right lower abdomen pain feeling nauseated. IV CONTRAST: 97 cc Omnipaque 350 (iohexol) IV ORAL CONTRAST: No oral contrast ingested. RADIATION DOSE: 4.97 CTDIvol (mGy) MEDICAL HISTORY : Renal calculi. SURGICAL HISTORY : Cholecystectomy. Tubal ligation. ENCOUNTER: Initial ACUITY: 1 day PAIN SCALE: 5/10 LOCATION: Right Abdomen TECHNIQUE: Volumetric scanning of the abdomen and pelvis was performed. Using automated exposure control and ad justment of the mA and/or kV according to patient size, radiation dose was kept as low as reasonably achievable to obtain optimal diagnostic quality images. DICOM format image data is available electro nically for review and comparison. FINDINGS: LOWER LUNGS: The visualized lower lungs are clear. LIVER: Liver is mild fatty infiltrated. Previous cholecystectomy. SPLEEN: Unchanged 23 mm simple appearing cyst PANCREAS: Within normal limits. KIDNEYS: Normal in size and shape. There is no mass, stone or hydronephrosis. ADRENAL GLANDS: Within normal limits. VASCULAR: There is no aortic aneurysm. BOWEL/MESENTERY: Mild wall thickening and mucosal enhancement seen of the cecum and ascending colon. I don't clearly s ee the appendix but no high-grade inflammatory changes are noted. There is small free fluid in the pe lvic cul-de-sac. ABDOMINAL WALL: Within normal limits. RETROPERITONEUM: There is no lymphadenopathy. BLADDER: No wall thickening or mass. REPRODUCTIVE: Within normal limits. INGUINAL: There is no lymphadenopathy or hernia. MUSCULOSKELETAL: Within normal limits for patient age. CONCLUSION: 1. Mild right-sided colitis possible in the proper clinical setting. No high-grade inflammatory negrete es are demonstrated. I don't clearly see the appendix. 2. Trace free fluid in the pelvic cul-de-sac. 3. Mild fatty infiltration of the liver. 4. Unchanged simple appearing cyst of the spleen. Gopi Yousif MD on June 15, 2017 at 20:30 Board Certified Radiologist. This report was verified electronically.
[2017-06-15] MEDS ORDERED: METR-1 PO (20:51)
[2017-06-15] MEDS ORDERED: ZOFR4TAB PO (20:51)
[2017-06-15] MEDS ORDERED: HYDR-3533 PO (20:51)
[2017-06-15] MEDS ORDERED: DIFL150T PO (20:51)
[2017-06-15 21:00] VITALS: BP 122/80; PULSE 88; RESP 19; O2SAT 100
[2017-06-15] MEDS ORDERED: FLUCONAZOLE 100 MG TAB PO ONE (21:15)
[2017-06-15] MEDS ORDERED: metroNIDAZOLE 500 MG TAB PO ONE (21:15)
== END 2017-06-15 21:32 | disposition home or self-care (01) ==
LOC: NEPC 16:24
DX: K52.9 Noninfective gastroenteritis and colitis, unspecified (principal); Z72.0 Tobacco use; Z79.899 Other long term (current) drug therapy; Z86.59 Personal history of other mental and behavioral disorders; Z87.442 Personal history of urinary calculi
CPT/HCPCS: 74177; 80053; 81001; 83690; 83735; 84703; 85025; 96374; 96375; 99285; J2270; J2405; J7030; Q9967

== ENCOUNTER 2017-07-30 14:12 | Emergency (ER) | payer OTHER ==
[~2017-07-30] VITALS: Ht 160 cm; Wt 50.0 kg
[~2017-07-30 14:12] MED LIST changes: +CYCL10TA PO; -DICY10 PO; +DIFL150T PO; -FLUC10SU PO; +GABA300C5 PO; +HYDR-3533 PO; +METR-1 PO; -OMEP40CA2 PO; +ZOFR4TAB PO; -ZOFR4TAB3 SL
[2017-07-30 14:17] VITALS: BP 122/76; PULSE 82; RESP 12; TEMP 97.9; O2SAT 99
[2017-07-30] MEDS ORDERED: HYDR-4107 PO (14:54)
[2017-07-30] MEDS ORDERED: SODIUM CHLOR 0.9% 1000 ML INJ 1,000 ML IV SCH (15:05)
[2017-07-30] MEDS ORDERED: ONDANSETRON HCL 4 MG/2 ML VIAL IVP ONE (15:15)
[2017-07-30] MEDS ORDERED: KETOROLAC TROMETHAMINE 30 MG/ML (IVP) VIAL IVP ONE (15:15)
[2017-07-30] MEDS ORDERED: SODIUM CHLORIDE 0.9% FLUSH 10 ML FLUSH IV FLUSH PRN (15:15)
--- NOTE | 2017-07-30 15:15 | PD ---
HPI Chief Complaint: GI Complaint Time Seen by Provider: 14:58 Travel History International Travel<30 days: No Contact w/Intl Traveler<30days: No Traveled to known affect area: No History of Present Illness HPI 42-year-old female presents to the emergency department reevaluation continued abdominal pain, nausea, diarrhea that has been ongoing since May when she was diagnosed with colitis. She states she was placed on antibiotics that she took. However, her symptoms are not resolved. She states she saw her family doctor who told her to take her antibiotics. However, she has not followed up with anybody since. She reports decreased appetite as well. No fevers or chills. She states the pain radiates up to her rib cage from her right lower abdomen. No exacerbating or alleviating factors. No other complaints at this time. Patient reports history tubal ligation, cholecystectomy, . She denies any urinary symptoms. No abnormal vaginal discharge or risk of STDs. PFSH Past Medical History Arthritis: No Anxiety: Yes Depression: No Cancer: No Cardiovascular Problems: No Diabetes: No Diminished Hearing: No Endocrine: No Genitourinary: No Hepatitis: No Hiatal Hernia: No Immune Disorder: No Implanted Vascular Access Dvce: No Kidney Stones: Yes Musculoskeletal: No Neurologic: No Psychiatric: No Reproductive: No Respiratory: No Immunizations Current: Yes Thyroid Disease: No Tetanus Vaccination: < 5 Years Influenza Vaccination: No ?: Not LMP: 07/21/2017 : 10 Para: 8 Miscarriage: 2 : 0 Dilation and Curettage (D&C): Yes Tubal Ligation: Yes Past Surgical History Abdominal Surgery: Yes AICD: No Cardiac Surgery: No Section: Yes Cholecystectomy: Yes Ear Surgery: No Endocrine Surgery: No Eye Surgery: No Genitourinary Surgery: No Gynecologic Surgery: Yes () Joint Replacement: No Pacemaker: No Thoracic Surgery: No Other Surgery: Yes (AND SURGERY BILAT ) Social History Alcohol Use: No Tobacco Use: Yes (1 ppd) Substance Use: No Allergies-Medications (Allergen,Severity, Reaction): Coded Allergies: acetaminophen (Unverified Allergy, Intermediate, itching, 07/30/17) codeine (Unverified Allergy, Intermediate, itching, 07/30/17) Reported Meds & Prescriptions Reported Meds & Active Scripts Active Ondansetron Odt 4 Mg Tab 4 Mg SL Q6HR PRN Macrobid (Nitrofurantoin Monohydrate Macrocrystals) 100 Mg Capsule 100 Mg PO BID 7 Days Reported Hydrocodone-Acetaminophen 5-300 Mg Tab 1 Tab PO Q6H PRN Flexeril (Cyclobenzaprine HCl) 10 Mg Tab 10 Mg PO TID Gabapentin 300 Mg Cap 300 Mg PO DAILY Review of Systems Except as stated in HPI: all other systems reviewed are Neg Physical Exam Narrative GENERAL: Well-nourished, well-developed female patient, ambulatory. Afebrile. SKIN: Focused skin assessment warm/dry. HEAD: Normocephalic. Atraumatic. EYES: No scleral icterus. No injection or drainage. NECK: Supple, trachea midline. No JVD or lymphadenopathy. CARDIOVASCULAR: Regular rate and rhythm without murmurs, gallops, or rubs. RESPIRATORY: Breath sounds equal bilaterally. No accessory muscle use. Lungs sounds are clear to auscultation. GASTROINTESTINAL: Abdomen soft . Patient has tenderness over right lower quadrant MUSCULOSKELETAL: No cyanosis, or edema. BACK: Nontender without obvious deformity. No CVA tenderness. Data Data Last Documented VS Vital Signs Date Time Temp Pulse Resp B/P (MAP) Pulse Ox O2 Delivery O2 Flow Rate FiO2 07/30/17 15:27 98 07/30/17 14:17 97.9 82 12 Orders Orders Complete Blood Count With Diff (07/30/17 15:05) Comprehensive Metabolic Panel (07/30/17 15:05) Lipase (07/30/17 15:05) Urinalysis - C+S If Indicated (07/30/17 15:05) Ct Abd/Pel W Iv Contrast(Rout) (07/30/17 15:05) Iv Access Insert/Monitor (07/30/17 15:05) Ecg Monitoring (07/30/17 15:05) Oximetry (07/30/17 15:05) Ondansetron Inj (Zofran Inj) (07/30/17 15:15) Sodium Chlor 0.9% 1000 Ml Inj (Ns 1000 M (07/30/17 15:05) Sodium Chloride 0.9% Flush (Ns Flush) (07/30/17 15:15) Ketorolac Inj (Toradol Inj) (07/30/17 15:15) Ed Urine Pregnancytest Poc (07/30/17 15:05) Iohexol 350 Inj (Omnipaque 350 Inj) (07/30/17 16:50) Urine Culture (07/30/17 16:18) Ed Discharge Order (07/30/17 17:47) Labs Laboratory Tests Test 07/30/17 15:25 07/30/17 16:18 White Blood Count 6.8 TH/MM3 Red Blood Count 4.05 MIL/MM3 Hemoglobin 13.3 GM/DL Hematocrit 39.3 % Mean Corpuscular Volume 97.1 FL Mean Corpuscular Hemoglobin 32.9 PG Mean Corpuscular Hemoglobin Concent 33.9 % Red Cell Distribution Width 12.9 % Platelet Count 235 TH/MM3 Mean Platelet Volume 9.6 FL Neutrophils (%) (Auto) 62.6 % Lymphocytes (%) (Auto) 29.9 % Monocytes (%) (Auto) 4.6 % Eosinophils (%) (Auto) 2.0 % Basophils (%) (Auto) 0.9 % Neutrophils # (Auto) 4.3 TH/MM3 Lymphocytes # (Auto) 2.0 TH/MM3 Monocytes # (Auto) 0.3 TH/MM3 Eosinophils # (Auto) 0.1 TH/MM3 Basophils # (Auto) 0.1 TH/MM3 CBC Comment DIFF FINAL Differential Comment Blood Urea Nitrogen 11 MG/DL Creatinine 0.58 MG/DL Random Glucose 80 MG/DL Total Protein 7.4 GM/DL Albumin 3.8 GM/DL Calcium Level 8.7 MG/DL Alkaline Phosphatase 77 U/L Aspartate Amino Transf (AST/SGOT) 14 U/L Alanine Aminotransferase (ALT/SGPT) 23 U/L Total Bilirubin 0.6 MG/DL Sodium Level 141 MEQ/L Potassium Level 3.7 MEQ/L Chloride Level 108 MEQ/L Carbon Dioxide Level 25.6 MEQ/L Anion Gap 7 MEQ/L Estimat Glomerular Filtration Rate 115 ML/MIN Lipase 82 U/L Urine Color YELLOW Urine Turbidity HAZY Urine pH 6.0 Urine Specific [place] 1.031 Urine Protein 30 mg/dL Urine Glucose (UA) NEG mg/dL Urine Ketones NEG mg/dL Urine Occult Blood NEG Urine Nitrite POS Urine Bilirubin NEG Urine Urobilinogen LESS THAN 2.0 MG/DL Urine Leukocyte Esterase TRACE Urine RBC 1 /hpf Urine WBC 3 /hpf Urine Squamous Epithelial Cells 3 /hpf Urine Bacteria MANY /hpf Urine Mucus MANY /lpf Microscopic Urinalysis Comment CULTURE INDICATED MDM Medical Decision Making Medical Screen Exam Complete: Yes Emergency Medical Condition: Yes Medical Record Reviewed: Yes Interpretation(s) Last Impressions Abdomen/Pelvis CT 07/30/17 1505 Signed Impressions: Service Date/Time: Sunday, July 30, 2017 16:33 - CONCLUSION: 1. No acute abnormality is identified to explain the clinical symptoms. The appendix is not visualized. 2. Nonacute findings include bilateral nonobstructing renal stones and a stable 2.5 cm cystic lesion within the spleen. Gopi Bertrand MD Differential Diagnosis Chronic abdominal pain versus gastritis versus colitis versus diverticulitis versus appendicitis Narrative Course 42-year-old female presents to the emergency department for evaluation of abdominal pain since May. CBC, CMP, lipase, UA, urine test are ordered and pending. CT abdomen/pelvis with IV contrast is ordered and pending. Patient is given normal saline 1 L IV bolus, Zofran 4 mg IV, Toradol 30 mg IV. CBC is unremarkable. CMP shows no acute abnormality. Lipase is 82. UA shows trace leukocyte esterase, many bacteria. UPT is negative. CT abdomen/pelvis shows no acute abnormality is identified to explain the clinical symptoms. The appendix is not visualized; Nonacute findings include bilateral nonobstructing renal stones and a stable 2.5 cm cystic lesion within the spleen. Patient will be discharged prescription for Macrobid for UTI. She is encouraged to follow with senior software architect for this abdominal pain. The patient was discharged in stable condition with instructions, including return instructions and follow up instructions. Diagnosis Primary Impression: Abdominal pain Qualified Codes: R10.31 - Right lower quadrant pain Additional Impression: UTI (lower urinary tract infection) Referrals: Room Service Food Server call for appointment Patient Instructions: Abdominal Pain (ED), General Instructions, Urinary Tract Infection in Women (ED) Departure Forms: Tests/Procedures, Work Release Enter return to work date: Jul 31, 2017 Additional Instructions: Take Macrobid as directed until gone. Take Zofran as directed as needed for nausea/vomiting. Follow up with senior software architect. Return to the emergency department for any acute, worsening of symptoms. Med/Other Pt SpecificInfo: Prescription(s) given Scripts Ondansetron Odt (Ondansetron Odt) 4 Mg Tab 4 MG SL Q6HR Y for Nausea/Vomiting, #12 TAB 0 Refills Prov: Shelley Castro 07/30/17 Nitrofurantoin Monohydrate Macrocrystals (Macrobid) 100 Mg Capsule 100 MG PO BID for Infection for 7 Days, #14 CAP 0 Refills Prov: Shelley Castro 07/30/17 Disposition: 01 DISCHARGE HOME Condition: Stable Shelley Castro Jul 30, 2017 15:15
[2017-07-30 15:27] VITALS: O2SAT 98
[2017-07-30 15:59] LABS: AUTOMATED NEUTROPHIL # 4.3 TH/MM3 (1.8-7.7); BASOPHIL # 0.1 TH/MM3 (0-0.2); BASOPHIL % 0.9 % (0.0-2.0); EOSINOPHIL # 0.1 TH/MM3 (0-0.4); HEMATOCRIT 39.3 % (35.0-46.0); HEMO FLAGS DIFF FINAL; LYMPH % 29.9 % (9.0-44.0); MEAN CELL VOLUME 97.1 FL (80.0-100.0); MEAN CORPUSCULAR HEMOGLOBIN 32.9 PG (27.0-34.0); MEAN CORPUSCULAR HGB CONC 33.9 % (32.0-36.0); MONO % 4.6 % (0.0-8.0); NEUT % 62.6 % (16.0-70.0); PLATELET COUNT 235 TH/MM3 (150-450); RED BLOOD COUNT 4.05 MIL/MM3 (4.00-5.30); RED CELL DISTRIBUTION WIDTH 12.9 % (11.6-17.2); WHITE BLOOD COUNT 6.8 TH/MM3 (4.0-11.0)
[2017-07-30 16:17] LABS: ALT (GPT) 23 U/L (10-53); ANION GAP 7 MEQ/L (5-15); AST (GOT) 14 U/L (15-37); BICARBONATE 25.6 MEQ/L (21.0-32.0); BLOOD UREA NITROGEN 11 MG/DL (7-18); CHLORIDE 108 MEQ/L (98-107); GLOMERULAR FILTRATION RATE 115 ML/MIN (>89); POTASSIUM 3.7 MEQ/L (3.5-5.1); SODIUM (NA) 141 MEQ/L (136-145)
[2017-07-30 16:19] LABS: ALKALINE PHOSPHATASE 77 U/L (45-117); TOTAL BILIRUBIN ADULT 0.6 MG/DL (0.2-1.0)
[2017-07-30] MEDS ORDERED: IOHEXOL 350 MG/ML 10 ML VIAL (for RAD DIAG) IVCONTRAST ONE (16:50)
[2017-07-30 17:06] LABS: BACTERIA, URINE MANY /hpf; BLOOD, URINE NEG (NEG); GLUCOSE,URINE NEG (NEG); KETONE, URINE NEG (NEG); MUCUS URINE MANY /lpf (OCC); NITRITE,URINE POS (NEG); SQUAMOUS EPITHELIAL CELL URINE 3 /hpf (0-5); URINE COLOR YELLOW (YELLW/STRAW)
--- NOTE | 2017-07-30 17:06 | RADRPT ---
EXAM DATE/TIME: 07/30/2017 16:33 [facility] COMPARISON: CT ABDOMEN & PELVIS W CONTRAST, March 23, 2015, 14:31. CT ABDOMEN & PELVIS W CONTRAST, April 29, 17:28. CT ABDOMEN & PELVIS W CONTRAST, June 15, 2017, 20:16. INDICATIONS : Right lower abdomen pain for three weeks with nausea, vomiting and diarrhea. IV CONTRAST: 71 cc Omnipaque 350 (iohexol) IV ORAL CONTRAST: No oral contrast ingested. RADIATION DOSE: 6.64 CTDIvol (mGy) MEDICAL HISTORY : None SURGICAL HISTORY : Tubal ligation. Cholecystectomy. ENCOUNTER: Initial ACUITY: 3 weeks PAIN SCALE: 7/10 LOCATION: Right lower quadrant TECHNIQUE: Volumetric scanning of the abdomen and pelvis was performed. Using automated exposure control and ad justment of the mA and/or kV according to patient size, radiation dose was kept as low as reasonably achievable to obtain optimal diagnostic quality images. DICOM format image data is available electro nically for review and comparison. FINDINGS: LOWER LUNGS: The visualized lower lungs are clear. LIVER: Homogeneous density without lesion. There is no dilation of the biliary tree. Gallbladder is absent with clips in the gallbladder fossa. SPLEEN: Normal size was stable low density presumed cystic lesion in the posterior aspect measuring 2.5 cm. PANCREAS: Within normal limits. KIDNEYS: Normal in size and shape. There is no mass or hydronephrosis. There is a 2 mm nonobstructing stone i n the right upper pole collecting system and 2 adjacent 2 mm nonobstructing stones in the left upper pole collecting system. ADRENAL GLANDS: Within normal limits. VASCULAR: There is no aortic aneurysm. BOWEL/MESENTERY: The stomach, small bowel, and colon demonstrate no acute abnormality. There is no free intraperitone al air or fluid. The appendix is not visualized. ABDOMINAL WALL: Within normal limits. RETROPERITONEUM: There is no lymphadenopathy. BLADDER: No wall thickening or mass. REPRODUCTIVE: Within normal limits. INGUINAL: There is no lymphadenopathy or hernia. MUSCULOSKELETAL: No acute abnormality. CONCLUSION: 1. No acute abnormality is identified to explain the clinical symptoms. The appendix is not visualize d. 2. Nonacute findings include bilateral nonobstructing renal stones and a stable 2.5 cm cystic lesion within the spleen. Gopi Bertrand MD on July 30, 2017 at 16:58 Board Certified Radiologist. This report was verified electronically.
[2017-07-30 17:07] LABS: COMMENT (UR) CULTURE INDICATED; CULTURE IF INDICATED CULTURE INDICATED
[2017-07-30] MEDS ORDERED: ONDA4TAB7 SL (17:45)
[2017-07-30] MEDS ORDERED: MACR100C2 PO (17:45)
== END 2017-07-30 18:21 | disposition home or self-care (01) ==
LOC: NEPE 14:12
DX: R10.31 Right lower quadrant pain (principal); N39.0 Urinary tract infection, site not specified; R11.0 Nausea; R19.7 Diarrhea, unspecified; B96.20 Unspecified Escherichia coli [E. coli] as the cause of diseases classified elsewhere; F17.200 Nicotine dependence, unspecified, uncomplicated; Z86.59 Personal history of other mental and behavioral disorders; Z87.442 Personal history of urinary calculi
CPT/HCPCS: 74177; 80053; 81001; 83690; 84703; 85025; 87077; 87086; 87186; 96374; 96375; 99285; J1885; J2405; J7030; Q9967

== ENCOUNTER 2017-08-12 09:35 | Emergency (ER) | payer OTHER ==
[~2017-08-12] VITALS: Ht 160 cm; Wt 55.0 kg
[~2017-08-12 09:35] MED LIST changes: -DIFL150T PO; -HYDR-3533 PO; +HYDR-4107 PO; +MACR100C2 PO; -METR-1 PO; +ONDA4TAB7 SL; -ZOFR4TAB PO
[2017-08-12 09:37] VITALS: BP 157/94; PULSE 102; RESP 16; TEMP 98.6; O2SAT 100
[2017-08-12] MEDS ORDERED: DICYCLOMINE HCL 10 MG CAP PO ONE (10:00)
[2017-08-12] MEDS ORDERED: ONDANSETRON ODT 4 MG TAB PO ONE (10:00)
--- NOTE | 2017-08-12 10:04 | PD ---
HPI Chief Complaint: GI Complaint Time Seen by Provider: 09:45 Travel History International Travel<30 days: No Contact w/Intl Traveler<30days: No Traveled to known affect area: No History of Present Illness HPI Patient is a 42 year old female with history of chronic low back pain in which she follows with pain management for. Patient reports that one year ago, she was started on Lortab 5 mg q 8 hours. Patient reports that she has been taking this every day for the past year. Patient reports that she notices that when she does not take her medications, she has symptoms of nausea, abdominal cramping with vomiting. Patient reports that she has resolution of symptoms when she takes her Lortab. Patient reports that she was never told that she could go through withdrawal symptoms while taking opiates. Patient reports that she searched online for opiate withdrawals symptoms and noticed that she was going through these symptoms. Patient reports that she stopped taking opiates 2 days ago as she does not like how they make her feel. Patient reports that she has follow-up with her painting machine operator on August 30, 2017, patient requests a nonnarcotic way of treating her chronic low back pain. Patient with no abdominal pain at this time, reports that she does feel a little nauseous. PFSH Past Medical History Arthritis: No Anxiety: Yes Depression: No Cancer: No Cardiovascular Problems: No Diabetes: No Diminished Hearing: No Endocrine: No Genitourinary: No Hepatitis: No Hiatal Hernia: No Immune Disorder: No Implanted Vascular Access Dvce: No Kidney Stones: Yes Musculoskeletal: No Neurologic: No Psychiatric: No Reproductive: No Respiratory: No Immunizations Current: Yes Thyroid Disease: No ?: Not LMP: 07/21/17 : 10 Para: 8 Miscarriage: 2 : 0 Dilation and Curettage (D&C): Yes Tubal Ligation: Yes Past Surgical History Abdominal Surgery: Yes AICD: No Cardiac Surgery: No Section: Yes Cholecystectomy: Yes Ear Surgery: No Endocrine Surgery: No Eye Surgery: No Genitourinary Surgery: No Gynecologic Surgery: Yes () Joint Replacement: No Pacemaker: No Thoracic Surgery: No Other Surgery: Yes (bHAND SURGERY BILAT ) Social History Alcohol Use: No Tobacco Use: Yes (1 ppd) Substance Use: No Allergies-Medications (Allergen,Severity, Reaction): Coded Allergies: acetaminophen (Unverified Allergy, Intermediate, itching, 08/12/17) codeine (Unverified Allergy, Intermediate, itching, 08/12/17) Reported Meds & Prescriptions Reported Meds & Active Scripts Active Bentyl (Dicyclomine HCl) 10 Mg Cap 10 Mg PO TID PRN Zofran (Ondansetron HCl) 4 Mg Tab 4 Mg PO Q6HR PRN Reported Hydrocodone-Acetaminophen 5-300 Mg Tab 1 Tab PO Q6H PRN Flexeril (Cyclobenzaprine HCl) 10 Mg Tab 10 Mg PO TID Gabapentin 300 Mg Cap 300 Mg PO DAILY Review of Systems General / Constitutional: No: Fever, Chills Eyes: No: Visual changes HENT: No: Headaches Cardiovascular: No: Chest Pain or Discomfort Respiratory: No: Shortness of Breath Gastrointestinal: Positive: Nausea, Vomiting, Diarrhea, No: Abdominal Pain Genitourinary: No: Dysuria Musculoskeletal: No: Pain Skin: No Rash Neurologic: No: Weakness Psychiatric: No: Depression Endocrine: No: Polydipsia Hematologic/Lymphatic: No: Easy Bruising Physical Exam Narrative GENERAL: NAD SKIN: Focused skin assessment warm/dry. HEAD: Atraumatic. Normocephalic. EYES: Pupils equal and round. No scleral icterus. No injection or drainage. ENT: No nasal bleeding or discharge. Mucous membranes pink and moist. NECK: Trachea midline. No JVD. CARDIOVASCULAR: Regular rate and rhythm. No murmur appreciated. RESPIRATORY: No accessory muscle use. Clear to auscultation. Breath sounds equal bilaterally. GASTROINTESTINAL: Abdomen soft, non-tender, nondistended. Hepatic and splenic margins not palpable. MUSCULOSKELETAL: No obvious deformities. No clubbing. No cyanosis. No edema. NEUROLOGICAL: Awake and alert. No obvious cranial nerve deficits. Motor grossly within normal limits. Normal speech. PSYCHIATRIC: Appropriate mood and affect; insight and judgment normal. Data Data Last Documented VS Vital Signs Date Time Temp Pulse Resp B/P (MAP) Pulse Ox O2 Delivery O2 Flow Rate FiO2 08/12/17 09:37 98.6 102 16 157/94 (115) 100 Orders Orders Ondansetron Odt (Zofran Odt) (08/12/17 10:00) Dicyclomine (Bentyl) (08/12/17 10:00) Ed Urine Pregnancytest Poc (08/12/17 09:53) MDM Medical Decision Making Medical Screen Exam Complete: Yes Emergency Medical Condition: Yes Medical Record Reviewed: Yes Interpretation(s) Vital Signs Date Time Temp Pulse Resp B/P (MAP) Pulse Ox O2 Delivery O2 Flow Rate FiO2 08/12/17 09:37 98.6 102 16 157/94 (115) 100 Differential Diagnosis Opiate withdrawal, gastroenteritis Narrative Course 42-year-old female who presents to emergency room with opiate withdrawal symptoms. She last took her Lortab 2 days ago, she had flush the rest of her script down the toilet 2 days ago as she does not wish to be addicted to any drugs. Reports "I didn't know that I could get addicted to this until I read about it and I don't want to take this anymore." Patient with no abdominal pain in the ER. Reports that she does feel a little nauseous. Patient requesting a nonnarcotic treatment for her chronic back pain whom she follows up with painting machine operator. I did discuss with patient treatment with clonidine, Bentyl and Zofran, patient reports concerns for clonidine as her blood pressure is usually low, she would like to try Zofran and Bentyl first. Patient reevaluated after Zofran and Bentyl was administered, she feeling much better at this time. Patient wishes not to be placed on opiates at this time, she will follow up with her pain management doctor for further prescriptions and treatment of her chronic pain. She'll return to the emergency room as needed Diagnosis Primary Impression: Opiate withdrawal Patient Instructions: General Instructions Departure Forms: Tests/Procedures, Work Release Enter return to work date: Aug 16, 2017 Additional Instructions: Please follow up with your painting machine operator as instructed Please follow up with your primary care doctor in 2-3 days Return to the ER if symptoms worsen or progress Return to the ER as needed Please take all medications as prescribed Med/Other Pt SpecificInfo: Prescription(s) given Scripts Dicyclomine (Bentyl) 10 Mg Cap 10 MG PO TID Y for Bowel Management, #30 CAP 0 Refills Prov: Blanca Garcia DO 08/12/17 Ondansetron (Zofran) 4 Mg Tab 4 MG PO Q6HR Y for NAUSEA OR VOMITING, #30 TAB 0 Refills Prov: Blanca Garcia DO 08/12/17 Disposition: 01 DISCHARGE HOME Condition: Stable Blanca Garcia DO Aug 12, 2017 10:04
[2017-08-12] MEDS ORDERED: ZOFR4TAB PO (10:32)
[2017-08-12] MEDS ORDERED: DICY10 PO (10:32)
[2017-08-12 10:44] VITALS: BP 113/78
== END 2017-08-12 10:52 | disposition home or self-care (01) ==
LOC: NEPD 09:35
DX: F11.23 Opioid dependence with withdrawal (principal); R11.2 Nausea with vomiting, unspecified; R19.7 Diarrhea, unspecified; F41.9 Anxiety disorder, unspecified; F17.200 Nicotine dependence, unspecified, uncomplicated; Z79.899 Other long term (current) drug therapy; Z87.442 Personal history of urinary calculi; Z88.6 Allergy status to analgesic agent; Z88.5 Allergy status to narcotic agent
CPT/HCPCS: 84703; 99284

== ENCOUNTER 2017-12-24 14:24 | Emergency (ER) | payer OTHER ==
[~2017-12-24] VITALS: Ht 160 cm; Wt 50.0 kg
[~2017-12-24 14:24] MED LIST changes: +DICY10 PO; -MACR100C2 PO; -ONDA4TAB7 SL; +ZOFR4TAB PO
[2017-12-24 14:36] VITALS: BP 121/76; PULSE 50; RESP 12; O2SAT 95
[2017-12-24] MEDS ORDERED: NALO1SPR NASAL (14:52)
--- NOTE | 2017-12-24 15:07 | PD ---
HPI Chief Complaint: OD/ Ingestion Time Seen by Provider: 14:38 Travel History International Travel<30 days: No Contact w/Intl Traveler<30days: No Traveled to known affect area: No History of Present Illness HPI 42-year-old woman presents emerged department following overdose. States that friend came to her house and offered her injection drugs which she took. Denies having ever used injection drugs in the past. Became obtunded and EMS was called. On EMS arrival she was not breathing, had a pulse. They gave 0.4 mg of IV Narcan with reversal of symptoms. Patient takes Lortab regularly for chronic back pain prescribed by her pain management doctor. Denies any other recent illness or injury. No other complaints. History Past Medical History Narrative Medical Chronic back pain Thyroid disease : 10 Para: 8 Dilation and Curettage (D&C): Yes Social History Alcohol Use: No Tobacco Use: Yes (1 ppd) Allergies-Medications (Allergen,Severity, Reaction): Coded Allergies: acetaminophen (Unverified Allergy, Intermediate, itching, 12/24/17) codeine (Unverified Allergy, Intermediate, itching, 12/24/17) Reported Meds & Prescriptions Reported Meds & Active Scripts Active Narcan Nasal Combs (Naloxone HCl) 4 Mg/Act Combs 4 Mg NASAL ONCE PRN Contents of 1 nasal spray as a single dose; may repeat every 2 to 3 minutes in alternating nostrils until medical assistance becomes available. Bentyl (Dicyclomine HCl) 10 Mg Cap 10 Mg PO TID PRN Zofran (Ondansetron HCl) 4 Mg Tab 4 Mg PO Q6HR PRN Reported Hydrocodone-Acetaminophen 5-300 Mg Tab 1 Tab PO Q6H PRN Flexeril (Cyclobenzaprine HCl) 10 Mg Tab 10 Mg PO TID Gabapentin 300 Mg Cap 300 Mg PO DAILY Review of Systems Except as stated in HPI: all other systems reviewed are Neg Physical Exam Narrative GENERAL: 42-year-old woman, no acute distress. SKIN: Focused skin assessment warm/dry. NECK: Trachea midline. No JVD. CARDIOVASCULAR: Regular rate and rhythm. No murmur appreciated. RESPIRATORY: No accessory muscle use. Clear to auscultation. Breath sounds equal bilaterally. GASTROINTESTINAL: Abdomen soft, non-tender, nondistended. Hepatic and splenic margins not palpable. MUSCULOSKELETAL: No obvious deformities. No clubbing. No cyanosis. No edema. NEUROLOGICAL: Awake and alert. No obvious cranial nerve deficits. Motor grossly within normal limits. Normal speech. PSYCHIATRIC: Tearful and anxious. Data Data Last Documented VS Vital Signs Date Time Temp Pulse Resp B/P (MAP) Pulse Ox O2 Delivery O2 Flow Rate FiO2 12/24/17 18:20 58 14 126/82 (97) 95 Room Air Orders Orders Chest, Single Ap (12/24/17 ) Ed Discharge Order (12/24/17 19:03) [facility] Medical Decision Making Medical Screen Exam Complete: Yes Emergency Medical Condition: Yes Differential Diagnosis Opioid overdose, aspiration, respiratory disease, other Narrative Course Medical decision making 42-year-old woman presents emergency department following overdose. Looks well. Will observe in ED for 4 hours. Patient states never used injection drugs before. Tearful and sad. States will not use again. FINAL: Patient labs in ED for 4 hours. No respiratory depression. Diagnosis Primary Impression: Overdose Patient Instructions: General Instructions Additional Instructions: Avoid illicit drugs. Follow-up with your primary doctor in 2-4 days for any new or worsening symptoms. You are being given a prescription for a naloxone nasal spray, or Narcan. This is indicated for use in the setting of opioid or narcotic overdose. It is intended to reverse the effects of prescription pain pills, heroin, and other opioid type narcotics, and can be administered by a bystander. If you suspect an opioid or narcotic overdose, administer 1 dose in the nose is a single spray , and immediately call 911. Symptoms of overdose include slowed or absent breathing and unresponsiveness. This dose can be repeated in 2-3 minutes at medical's assistance is not yet available. This medicine is short acting and medical assistance is required any time naloxone spray is needed for an overdose. Follow-up with [facility]ino's héctor for substance abuse treatment. Return to the emergency department for new or worsening symptoms. Med/Other Pt SpecificInfo: Prescription(s) given Scripts Naloxone Nasal Combs (Narcan Nasal Combs) 4 Mg/Act Combs 4 MG NASAL ONCE Y for OPIOID OVERDOSE, #2 SPRAY 0 Refills Contents of 1 nasal spray as a single dose; may repeat every 2 to 3 minutes in alternating nostrils until medical assistance becomes available. Prov: Ilia Ralph MD 12/24/17 Disposition: 01 DISCHARGE HOME Condition: Stable Ilia Ralph MD Dec 24, 2017 15:07
--- NOTE | 2017-12-24 15:14 | RADRPT ---
EXAM DATE/TIME: 12/24/2017 14:51 [facility] COMPARISON: CHEST SINGLE AP, March 20, 2017, 15:46. INDICATIONS : Chest pain MEDICAL HISTORY : SURGICAL HISTORY : Tubal ligation. Cholecystectomy ENCOUNTER: Initial ACUITY: 1 day PAIN SCORE: 2/10 LOCATION: chest FINDINGS: A single view of the chest demonstrates the lungs to be symmetrically aerated without evidence of mas s, infiltrate or effusion. The cardiomediastinal contours are unremarkable. Osseous structures are intact. CONCLUSION: No acute disease. No significant change has occurred. Sami Watson MD on December 24, 2017 at 15:11 Board Certified Radiologist. This report was verified electronically.
[2017-12-24 18:20] VITALS: BP 126/82; PULSE 58; RESP 14; O2SAT 95
--- NOTE | 2017-12-25 15:26 | EKG ---
Date Performed: 12/24/2017 Time Performed: 14:39:23 PTAGE: 42 years EKG: SINUS BRADYCARDIA WITH SHORT GA INTERVAL PROLONGED QT INTERVAL Since the previous tracing, no significant change noted ABNORMAL ECG PREVIOUS TRACING : 11/10/16 @ 1924 DOCTOR: Maryam Ludwig Interpretating Date/Time 12/25/2017 15:18:16
== END 2017-12-24 20:12 | disposition home or self-care (01) ==
LOC: NEPE 14:24
DX: T40.2X1A Poisoning by other opioids, accidental (unintentional), initial encounter (principal); G89.29 Other chronic pain; M54.9 Dorsalgia, unspecified; F17.200 Nicotine dependence, unspecified, uncomplicated; R00.1 Bradycardia, unspecified
CPT/HCPCS: 71045; 93005; 99284